=== PATIENT | male | born 1980 | race American Indian/Alaskan Native ===

== ENCOUNTER 2018-08-19 05:22 | Day surgery (SDC) | payer OTHER ==
[~2018-08-19] VITALS: Ht 180.3 cm; Wt 85.3 kg
--- NOTE | ~2018-08-19 | O ---
[facility] [place] [address] OPERATIVE REPORT Name: MARTHA GUAMAN Room #: 150-3 [facility] M.R.#: [id number] Admission: 08/19/18 Attend Phys: Markie Gutierrez MD Discharge: Date of : 76 Report #: [id number] THIS REPORT FOR: //name// CC: Ryley Gutierrez DATE OF SERVICE: 08/19/2018 SERVICE: Orthopedics. FACILITY: [facility]. SURGEON: Markie Gutierrez MD WOMEN NURSE: Mila Campos NP INDICATION FOR WOMEN NURSE: Exposure, assistance with reduction and internal fixation. COMPLICATIONS: None. DRAINS: None. SPECIMENS: None. ANESTHESIA: General. PREOPERATIVE DIAGNOSIS: Comminuted intraarticular displaced right olecranon fracture. POSTOPERATIVE DIAGNOSIS: Comminuted intraarticular displaced right olecranon fracture. PROCEDURE: Open reduction and internal fixation right olecranon fracture. FINDINGS: 1. Highly comminuted fracture with impaction and comminution of the articular surface. 2. Five primary fragments with the shaft fragment, the olecranon tip fragment, a floating articular surface segment and metaphyseal segments bridging the olecranon fragment to the shaft with a sagittal split. This did require additional work with the articular reduction and internal fixation. 3. [place] 4-hole olecranon plate with 2.3 mm sagittal plane compression lag screw as well as a single bent K-wire for subchondral support. HISTORY AND INDICATIONS: The patient is a 37-year-old gentleman who fell last [facility] [address] [place] [address] OPERATIVE REPORT Name: MARTHA GUAMAN Room #: 150-3 [facility]..#: [id number] Admission: 08/19/18 Attend Phys: Markie Gutierrez MD Discharge: Date of : 76 Report #: [id number] week, sustaining a severe right elbow displaced olecranon fracture. He was indicated for surgical treatment based on the nature of the injury. Risks, benefits, alternatives and indications for surgery were discussed with him in detail. He gave full informed consent after that discussion. Risks include but not limited to pain, bleeding, infection, malunion, nonunion, need for further surgery including hardware removal, infection as well as complications related to anesthesia such as stroke, heart attack, pulmonary complications, thromboembolic disease and . Despite these risks, he wished to proceed. PROCEDURE IN DETAIL: After right upper extremity was correctly identified in the preop holding area as operative extremity, the patient was taken to the operating room where general anesthesia was induced with LMA without complication. He was turned into the lateral decubitus position with the right side up, left side down. Tourniquet was applied in right upper extremity. The right arm was prepped and draped in standard sterile fashion after prophylactic antibiotics have been administered at appropriate time. Time-out procedure was performed confirm appropriate patient, procedure and extremity. Esmarch was utilized. Tourniquet was inflated to 250 mmHg. Standard posterior approach was made to the elbow. Dissection was taken down to the olecranon into the ulnar shaft. Full thickness skin flaps were developed while preserving the soft tissue envelope. There was significant amount of hematoma and edema. The hematoma was evacuated. The fracture was gapped open. There was noted to be the five segments as stated above. The most difficult portion of this was the floating articular segment, which had cancellous impaction, so really did have a good support keeping it in its anatomic position, so using indirect reduction technique with the elbow held anatomically reduced, which allowed for articular reduction and then eventually utilized the plate to perform the initial reduction and fixed the plate with nonlocking screws to the olecranon segment and then delivered it to the shaft and fixed it to the shaft distally. The sagittal split was then addressed while holding the floating articular segment against the distal humerus, which allowed for it to be positioned anatomically relative to the rest from the articular surface and then a clamp was applied over the plate closing down the lateral and medial cortical segments of the metaphyseal portion that link the olecranon tip to the shaft. This was then repaired with the 2.3 mm screw in a compression lag technique. There was an additional segment that did provide an ulnar-sided buttress to the floating articular segment, but this was quite fragile and would not hold a screw. In addition, there was a minimal bony support, so I placed a K-wire across this, which reduced it to the lateral cortex in the metaphysis providing a buttress to this articular segment. At this point, the plate was fixed again to the shaft in a compression technique with 2 compression screws and then the proximal screw on the plate was removed with the plan for a nonlocking compression home run type screw, which was placed using fluoroscopy to confirm appropriate position. The shaft screws were then backed out some to allow compression of the articular segment. This provided good anatomic sikhism of the articular surface, [facility] [address] [place] [address] OPERATIVE REPORT Name: MARTHA GUAMAN [id number] Admission: 08/19/18 Attend Phys: Markie Gutierrez MD Discharge: Date of : 76 Report #: [id number] which was confirmed on x-ray. We actually used the forearm to visualize compression across the fracture line at the articular surface as screw was placed down using fluoroscopy. The plate was then fixed securely to the shaft and the remaining locking screws were placed in the proximal segment provide a good hybrid type fixation. The K-wire was then bent, cut and driven securely into the bone and then Vitoss bone graft putty was placed into the metaphyseal defect with some bone graft that we had a retained during the exposure. Wound was then copiously irrigated. The triceps insertion was covered over the proximal part of the plate with an 0 Vicryl suture in [id number] interrupted fashion and then the soft tissue was closed over the plate distally as well. Skin was closed with 2-0 Vicryl followed by skin jennyfer. A well-padded posterior splint was applied after sterile dressing. The patient was awakened from anesthesia and taken to the recovery room in stable condition. There were no complications. All counts were reported as correct. <ELECTRONICALLY SIGNED> By: Markie Gutierrez MD 08/20/18 [id number] Markie Gutierrez MD /nt
[~2018-08-19 05:22] MED LIST: HYDROCODON-ACE1 EAC7 PO; LEXAPRO 10 MG T10 M2 PO; XANAX 0.25 MG0.25 MG PO
[2018-08-19 08:25] VITALS: BP 122/62
[2018-08-19 13:59] VITALS: BP 122/62
== END 2018-08-19 16:15 | disposition home or self-care (01) ==
LOC: TBA 05:22 → OR 05:22
DX: S52.031A Displaced fracture of olecranon process with intraarticular extension of right ulna, initial encounter for closed fracture (principal); F41.9 Anxiety disorder, unspecified; F32.9 Major depressive disorder, single episode, unspecified; Z79.899 Other long term (current) drug therapy; Z98.818 Other dental procedure status; Z98.890 Other specified postprocedural states; X58.XXXA Exposure to other specified factors, initial encounter; Y93.89 Activity, other specified; Y92.89 Other specified places as the place of occurrence of the external cause; Y99.8 Other external cause status
CPT/HCPCS: 50010; 50101; 50386; 51412; 56528; 57091; 57178; 62110; 62900; 70005